=== PATIENT | female | born 1980 ===

== ENCOUNTER 2018-09-17 13:13 | Emergency (ER) | payer SELFPAY ==
[2018-09-17 13:14] VITALS: BMI 38.2
[2018-09-17 13:20] VITALS: BP 127/73; PULSE 88; RESP 17; TEMP 98.6; O2SAT 98
--- NOTE | 2018-09-17 13:36 | C.PDOC ---
History Of Present Illness 37 y/o female comes in to ED reporting she got a tattoo put on her left forearm a week ago that became irritating and itchy 2 days later, with some redness and scaly appearance. She reports she tried using antibacterial soap and A&D ointment with no improvement. Denies any fever or chills. Time Seen by Provider: 09/17/18 13:27 Chief Complaint (Nursing): Abnormal Skin Integrity History Per: Patient History/Exam Limitations: no limitations Onset/Duration Of Symptoms: Days Current Symptoms Are (Timing): Still Present Past Medical History Reviewed: Historical Data, Nursing Documentation, Vital Signs Vital Signs: Last Vital Signs Temp 98.6 F 09/17/18 13:17 Pulse 88 09/17/18 13:17 Resp 17 09/17/18 13:17 BP 127/73 09/17/18 13:17 Pulse Ox 98 09/17/18 13:17 - Medical History PMH: Anemia - [facility] EXTRACTION OF POC, LOW CERVICAL, OPEN APPROACH (12/15/15) OCCLUSION OF BILATERAL FALLOPIAN TUBES, OPEN APPROACH (12/15/15) Family History: States: No Known Family Hx - Social History Hx Alcohol Use: Yes Hx Substance Use: No - Immunization History Hx Tetanus Toxoid Vaccination: Yes Hx Influenza Vaccination: No Hx Pneumococcal Vaccination: No Review Of Systems Except As Marked, All Systems Reviewed And Found Negative. Constitutional: Negative for: Fever, Chills Musculoskeletal: Positive for: Other (Itchiness to the left forearm, with some redness) Physical Exam - Physical Exam Appears: Non-toxic, No Acute Distress Skin: Warm, Dry Head: Atraumatic, Normacephalic Eye(s): bilateral: Normal Inspection Extremity: No Tenderness, No Deformity, No Swelling, Other (Inside the tattoo, there was evidence of redness and irritation but none beyond the borders of the tattoo) Extremity: Bilateral: Normal ROM Neurological/Psych: Oriented x3, Normal Speech, Normal Motor, Normal Sensation ED Course And Treatment O2 Sat by Pulse Oximetry: 98 (RA) Pulse Ox Interpretation: Normal Disposition Counseled Patient/Family Regarding: Diagnosis, Need For Followup, Rx Given - Disposition Disposition: HOME/ ROUTINE Disposition Time: 13:36 Condition: STABLE Prescriptions: Cephalexin [cephalexin] 500 mg PO TID #30 cap Mupirocin 2% Ointment [Bactroban Ointment] 1 appl TP BID #1 tube Forms: [facility] (Italian), General Discharge Instructions - POA Present On Arrival: None - Clinical Impression Clinical Impression: Skin infection - Scribe Statement The provider has reviewed the documentation as recorded by the Ernieibgrace Modi Provider Attestation: All medical record entries made by the Scribe were at my direction and personally dictated by me. I have reviewed the chart and agree that the record accurately reflects my personal performance of the history, physical exam, medical decision making, and the department course for this patient. I have also personally directed, reviewed, and agree with the discharge instructions and disposition.
== END 2018-09-17 13:50 | disposition home or self-care (01) ==
LOC: C.ER 13:13
DX: L08.9 Local infection of the skin and subcutaneous tissue, unspecified (principal)